=== PATIENT | female | born 1960 | race Caucasian/White ===

== ENCOUNTER → 2017-02-25 | Outpatient (CLI) | payer BC ==
[~2017-02-25] MED LIST: ALEN70TA4 PO; ASPCH81X PO; CHOL1TAB46 PO; COEN400C5 PO; HYDR-5688 PO; HYDR12.55 PO; LPT10 PO; MULT-506 PO
--- NOTE | 2017-02-26 13:28 | MAMMOGRAPHY REPORT ---
BILATERAL DIGITAL SCREENING MAMMOGRAM TOMOSYNTHESIS WITH CAD: 02/25/2017 CLINICAL HISTORY: Routine screening. Patient has no complaints. TECHNIQUE: Breast tomosynthesis in addition to standard 2D mammography was performed. Current study was also evaluated with a Computer Aided Detection (CAD) system. COMPARISON: Comparison is made to exams dated: 02/23/2016 mammogram, 02/21/2015 mammogram, 02/18/2014 m ammogram, 02/10/2013 mammogram, 12/25/2011 mammogram, and 12/21/2010 mammogram - [facility]. BREAST COMPOSITION: The tissue of both breasts is heterogeneously dense, which may obscure small mas ses. FINDINGS: There is a area of architectural distortion in the lateral middle one third of the left br east, only definitely seen on the CC view but thought to project superiorly on the MLO view, for whic h additional spot compression tomosynthesis left MLO views and targeted ultrasound is recommended. A nother possible area of distortion is seen in the superior far posterior right breast on the MLO view . Not definitely seen but possibly projecting medially based on the tomosynthesis localizer bar. Ad ditional spot compression tomosynthesis views and possibly ultrasound is recommended in the right gonzales ast. No other suspicious mass, or suspicious microcalcifications are seen bilaterally. IMPRESSION: ACR BI-RADS CATEGORY 0: INCOMPLETE EVALUATION: NEED ADDITIONAL IMAGING EVALUATION The architectural distortion in the lateral left breast and possible architectural distortion in the superior, posterior right breast need additional imaging evaluation. The patient will be called to schedule an appointment. Approximately 10% of breast cancers are not detected with mammography. A negative mammographic report should not delay biopsy if a clinically suggestive mass is present. Nelly Forte M.D. ay/:02/25/2017 16:51:26 High Worker: Denise BERMUDEZ(Anshul)(Nadir), [facility] letter sent: Addl Imaging 0 BI-RADS Code: ACR BI-RADS Category 0: Incomplete Evaluation: Need Additional Imaging Evaluation
== END | disposition home or self-care (01) ==
LOC: C.MAMM 09:04
PROVIDERS: ATTEND Obstetrics & Gynecology
DX: Z12.31 Encounter for screening mammogram for malignant neoplasm of breast (principal); R92.8 Other abnormal and inconclusive findings on diagnostic imaging of breast

== ENCOUNTER → 2017-03-12 | Outpatient (CLI) | payer BC ==
--- NOTE | 2017-03-12 15:39 | MAMMOGRAPHY REPORT ---
BILATERAL DIGITAL DIAGNOSTIC MAMMOGRAM TOMOSYNTHESIS WITH CAD AND TARGETED BILATERAL ULTRASOUND: 03/12 CLINICAL HISTORY: 56 year-old woman called back from screening mammography for possible architectural distortion in the superior posterior right breast on the MLO view, and left upper outer quadrant. TECHNIQUE: Spot compression CC and MLO tomosynthesis images of each breast were obtained. COMPARISON: Comparison is made to exams dated: 02/25/2017 mammogram, 02/23/2016 mammogram, 02/21/2015 m ammogram, 02/18/2014 mammogram, 02/10/2013 mammogram, and 12/25/2011 mammogram - [facility]. BREAST COMPOSITION: The tissue of both breasts is heterogeneously dense, which may obscure small mas ses. FINDINGS: Spot compression tomosynthesis views of the right breast failed to demonstrate persistent distortion in the medial or lateral posterior breast on the CC views, and in the superior posterior b reast on the MLO view as questioned from the screening mammogram. Further evaluation with ultrasound was performed. No suspicious mass or other focal area of architectural distortion is identified. There is persistent focal architectural distortion in the upper outer middle one third of the left br east, located 5 cm distal to the nipple on the CC projection. No other focal architectural distortio n or obvious mass is identified. Further evaluation with ultrasound was performed. Targeted ultrasound was performed in the upper outer quadrant of the left breast, and throughout the superior right breast including the 4:00 and 8:00 axes. In the 2:00 left breast, 2 cm from the nippl e, there is a very subtle isoechoic taller than wide minimally shadowing mass and associated architec tural distortion, that is thought to correlate with the mammographic finding. It measures approximat delfina 6.2 x 8.1 x 7.1 mm. Differential considerations include radial scar and carcinoma. Definitive c haracterization with an ultrasound-guided core biopsy is recommended. Throughout the visualized right breast, normal fibroglandular tissue is seen without a discrete solid or cystic mass. IMPRESSION: ACR BI-RADS CATEGORY 4B: INTERMEDIATE SUSPICION FOR MALIGNANCY, TARGETED ULTRASOUND ACR BI-RADS CATEGORY 4B: INTERMEDIATE SUSPICION FOR MALIGNANCY 1. Ultrasound guided core biopsy is recommended for a subtle focal area of architectural distortion in the 2:00 axis, for which differential considerations include radial scar and carcinoma. Another o ption of tomosynthesis guided preoperative needle localization and surgical excision was also provide d to the patient but we will opt for the minimally invasive biopsy at this time. 2. No definite persistent distortion in the right breast with supplemental tomosynthesis spot compre ssion views, and no suspicious sonographic correlate identified. This finding most likely represente d normal overlapping tissue. However, pathology results in the left breast will be reviewed prior to definitive follow-up recommendations in the right breast. These results and recommendations were discussed with the patient at the time of the exam. She berry callaway scheduled the left breast biopsy prior to leaving our department. Approximately 10% of breast cancers are not detected with mammography. A negative mammographic report should not delay biopsy if a clinically suggestive mass is present. Nelly Forte M.D. ay/:03/12/2017 14:39:22 Risk Lead: Aruna BANSAL)(Nadir), [facility] letter sent: Abnormal 4/5 BI-RADS Code: ACR BI-RADS Category 4B: Intermediate Suspicion For Malignancy Ultrasound BI-RADS: ACR BI-RADS Category 4B: Intermediate Suspicion For Malignancy
== END | disposition home or self-care (01) ==
LOC: C.MAMM 08:37
PROVIDERS: ATTEND Obstetrics & Gynecology
DX: R92.2 Inconclusive mammogram (principal)

== ENCOUNTER → 2017-03-20 | Outpatient (CLI) | payer BC ==
--- NOTE | 2017-03-20 12:10 | Discharge Instructions ---
Discharge Instructions Procedure Procedure Date: Mar 20, 2017. Reason for visit: Left Mass/Distortion. Discharge Discharge Date: Mar 20, 2017. Discharge Diagnosis: post left breast ultrasound guided core biopsy Medications Restart Stopped Medication(s): May restart Aspirin tomorrow Instructions Activity Recommendations: Additional Limitations (see below) Return to School/Work: no limitations Recommended Home Diet: No Limitations Provider Instructions: ACTIVITY RECOMMENDATIONS: * No lifting, pushing, pulling or exercising the affected side for three days. RETURN TO SCHOOL/WORK: * You may return to work/school after the procedure, but do not perform any strenuous activities for 24 to 48 hours. MEDICATIONS: * Tylenol (two 325 mg) every four to six hours if needed for mild pain (if not allergic to Tylenol). DIET: * Resume previous diet. SPECIAL CARE INSTRUCTIONS: * Keep biopsy site dry for 24 hours. May shower after 24 hours, but do not soak (bathe) incision. * May remove Tegaderm (plastic patch) tomorrow AFTER showering. * Leave the steri-strips on for one week. Allow the steri-strips to fall off by themselves. If not off after one week, you may remove them. You may place a Bandaid crosswise over the strips, if desired. * Apply ice 10 minutes on and 10 minutes off as needed. * Wear a bra at bedtime to sleep more comfortably for 2-3 days. * Your referring physician should have the results after approximately 5 to 7 business days. * Call for unusual bleeding, fever, drainage, etc or if you have any questions call [phone] during normal business hours or after hours call Dr Forte, . FOLLOW UP VISIT: Follow-up with Referring Physician as scheduled. [place] Recommendations: Call your doctor if: * Temperature above 101 degrees * Pain not relieved by pain medicine ordered * There is increased drainage or redness from any incision * You have any unanswered questions or concerns. Your Doctors Instructions noted above were prepared by provider Nelly Forte. Patient Signature Section: Patient Instructions Signature Page Ayah Cabrales Patient (or Guardian) Signature/Date: I have read and understand the instructions given to me by my caregivers. Caregiver/RN/Doctor Signature/Date: The above-named patient and/or guardian has received patient instructions on this date. + Original Patient Signature Page (only) stays with chart. Please make copy for patient.
--- NOTE | 2017-03-20 13:52 | MAMMOGRAPHY REPORT ---
THIS REPORT HAS BEEN AMENDED. ULTRASOUND GUIDED BIOPSY LEFT BREAST: 03/20/2017 CLINICAL HISTORY: Subtle area of architectural distortion in the lateral, middle one third of the lef t breast, best seen on the CC view but thought to project superiorly on the MLO view. A vague probab le sonographic correlate was identified in the 2:00 axis, and the patient presents for ultrasound apolonia ded core needle biopsy. COMPARISON: Comparison is made to exams dated: 03/12/2017 ultrasound, 03/12/2017 mammogram, 02/25/2017 mammogram, 02/23/2016 mammogram, 02/21/2015 mammogram, and 02/18/2014 mammogram - [facility]. PATIENT CONSENT: The procedure, risks and benefits were discussed with the patient and informed writt en consent was obtained. Specific risks to this procedure include: bleeding, infection, puncture of a djacent structure, nontarget biopsy, sampling error, metal allergy, pain and medication reaction. PROCEDURE DESCRIPTION: A time out was performed and the left breast was agreed as the site of biopsy. The skin was prepped and draped in the usual sterile fashion. The very subtle probable area of archi tectural distortion in the 2:00 left breast was identified and chosen as the target for biopsy. Subcu taneous and intraparenchymal 1% buffered lidocaine was administered as local anesthesia. A skin incis ion was made. Through the incision, 5 samples were taken with a 12 gauge Celero biopsy device. A rib bon-shaped metallic marker was placed at the biopsy site. Hemostasis was achieved after manual compre ssion. The patient tolerated the procedure well and there was no immediate complication. The samples were sent to pathology in an appropriately labeled container. Postprocedure left CC and ML 2-D and tomosynthesis images were obtained. There is a new ribbon-shape d metallic biopsy marker in the 2:00 middle one third of the left breast. On the CC tomosynthesis ly sis the marker resides in the center of the architectural distortion, confirming mammographicsonogra phic correlation. No significant postbiopsy hematoma is seen. IMPRESSION: ULTRASOUND GUIDED BIOPSY Status post ultrasound-guided core biopsy of a subtle area of architectural distortion in the 2:00 le ft breast, with biopsy marker placed at the site. The biopsy marker clip is seen in the center of th e distortion on the postprocedure tomosynthesis images confirming mammographicsonographic correlatio n. The patient will receive notification of the biopsy results from her referring physician. Nelly Forte M.D. ay/:03/20/2017 12:32:38 Cleaner Industrial: Denise BERMUDEZ(R)(Nadir), [facility] AMENDMENT: 03/29/2017 Nelly Forte M.D. Pathology results from the ultrasound-guided core biopsy of a subtle area of architectural distortion in the 2:00 left breast yielded a radial scar. Negative for in situ and invasive carcinoma. The pa thology results are concordant with the imaging appearance of architectural distortion. Given the fi nding of a radial scar, surgical consultation for surgical excisional biopsy is recommended. With regard to the right breast findings of a possible second area of distortion in the superior post erior aspect of the breast on the MLO view that effaced with the additional supplemental spot scott yair tomosynthesis images and there was no sonographic correlate, this is probably benign but would r ecommend follow-up right diagnostic mammograms and possible ultrasound to ensure stability in 6 month s.
--- NOTE | 2017-03-20 13:53 | MAMMOGRAPHY REPORT ---
UNILATERAL LEFT DIGITAL DIAGNOSTIC MAMMOGRAM TOMOSYNTHESIS: 03/20/2017 CLINICAL HISTORY: Status post ultrasound-guided core biopsy of a subtle area of architectural distort ion in the 2:00 left breast. Please refer to the report from left breast ultrasound-guided core biopsy performed at the same time for full detail. IMPRESSION: POST PROCEDURE IMAGING FOR MARKER PLACEMENT Please refer to the report from left breast ultrasound-guided core biopsy performed at the same time for full detail. Approximately 10% of breast cancers are not detected with mammography. A negative mammographic report should not delay biopsy if a clinically suggestive mass is present. Nelly Forte M.D. ay/:03/20/2017 12:14:16 Slurry Mixer: Denise BERMUDEZ(Anshul)(M), [facility] BI-RADS Code: Post Procedure Imaging For Marker Placement
== END | disposition home or self-care (01) ==
LOC: C.MAMM 11:02
PROVIDERS: ATTEND Obstetrics & Gynecology
DX: N63 Unspecified lump in breast (principal)

== ENCOUNTER → 2017-04-11 | Outpatient (CLI) | payer BC | END | disposition home or self-care (01) | LOC: C.MAMM 15:02 | PROVIDERS: ATTEND Family Medicine | DX: M85.89 Other specified disorders of bone density and structure, multiple sites (principal); Z87.39 Personal history of other diseases of the musculoskeletal system and connective tissue; E83.50 Unspecified disorder of calcium metabolism ==

== ENCOUNTER → 2017-05-09 | Outpatient (CLI) | payer BC | END | disposition home or self-care (01) | LOC: C.CPL 11:43 | PROVIDERS: ATTEND Surgery | DX: R92.2 Inconclusive mammogram (principal); N64.89 Other specified disorders of breast ==

== ENCOUNTER → 2017-05-17 | Day surgery (SDC) | payer BC ==
[2017-05-13 15:04] VITALS: Ht 162.6 cm; Wt 72.7 kg
[~2017-05-17] VITALS: Ht 162.6 cm; Wt 72.7 kg
[~2017-05-17] MED LIST changes: +ATROPINE SULFATE 0.1 MG/ML 5ML SYR IV PRN; +CEFAZOLIN 2000 MG/60 ML D5W IV SCH; +EpHEDrine SULFATE INJ 50 MG/ML AMP IV PRN; +FENTANYL CITRATE INJ 50 MCG/1 ML 2 ML VIAL IV PRN; +FENTANYL CITRATE INJ 50 MCG/1 ML 2 ML VIAL ONE; +FLUMAZENIL 0.1 MG/1 ML 10 ML VIAL IV PRN; +HYDROCODONE/ACETAMOPHEN 5/325MG TAB PO PRN; +HYDROmorphone INJ 2 MG/ML SYR/VIAL IV PRN; +LABETALOL HCL IV 5 MG/ML 20ML IV PRN; +LACTATED RINGER'S 1000ML 1,000 ML IV SCH; +LIDOCAINE HCL 1% 20 ML VIAL ONE; +LIDOCAINE HCL 2% 2 ML VIAL (20MG/ML) ONE; +MEPERIDINE HCL 25 MG/ML CARP IV PRN; +MIDAZOLAM HCL 1 MG/ML 2ML VIAL ONE; +NALOXONE HCL 0.4 MG/1 ML VIAL/CARP IV PRN; +ONDANSETRON INJ 2 MG/ML 2 ML VIAL IV PRN; +PHENYLEPHRINE 100MCG/ML 5ML SYR IV PRN; +PROPOFOL IV EMULSION 10 MG/ML 20 ML VIAL IV ONE; +SODIUM CHLORIDE 0.9% 1000ML 1,000 ML IV SCH; +SUCCINYLCHOLINE CHLORIDE 20 MG/ML 10 ML VIAL IV ONE
--- NOTE | 2017-05-17 10:34 | History & Physical Bridge - SC ---
H&P Re-Evaluation Bridge Note: I have examined the patient, reviewed the History & Physical and in the interval since the performance of the History & Physical I have noted the following changes of clinical significance: No changes noted
--- NOTE | 2017-05-17 11:50 | [facility] Operative Report ---
Operative Report Operative Date May 17, 2017. Pre-Operative Diagnosis Left Breast Inconclusive Mammogram, Radical Scar Post-Operative Diagnosis Same Procedure(s) Performed Left Breast Biopsy With Needle Localization Surgeon Dr. Mercado Section Supervisor Surgeon(s) Jordan Mckeon PA-C Findings clip Specimens A.) Left Breast Tissue (Out @ 1130)-- To BCC Anesthesia local/ sedation Complication(s) None Disposition Recovery Room / PACU I attest to the content of the Intraoperative Record and any orders documented therein. Any exceptions are noted below.
--- NOTE | 2017-05-17 11:55 | Discharge Instructions-SurgCtr ---
Discharge Instructions Date of Service May 17, 2017. Visit Reason for Visit: Left Breast Inconclusive Mammogram, Radical Scar Discharge Discharge Diagnosis / Problem: abnl Lt mammogram Discharge Goals Goal(s): Decrease discomfort, Improve function, Improve disease control Medications Stopped Medications Name(s): daily asa stopped. last dose 05/09. Activity Recommendations Activity Limitations: as noted below Lifting Limitations: no more than 25 pounds Exercise/Sports Limitations: until after follow-up appointment May Resume Sexual Activity: when tolerated (may shower over incision in 2 days - Sun 05/19) Driving or Machine Use: resume 1 day after discharge SPECIAL CARE INSTRUCTIONS: * Cover incisions and change daily for comfort/drainage. * Leave steri strips in place * May use ibuprofen for pain as tolerated. * Expect some swelling and bruising. Call your doctor if: * Temperature above 101 degrees * Pain not relieved by pain medicine ordered * There is increased drainage or redness from any incision * You have any unanswered questions or concerns [phone]. FOLLOW UP VISIT: If not already scheduled, please call the office for a follow-up visit. for 2 weeks- check up- no sutures to remove OFFICE PHONE NUMBER: Dr. Mercado Office Anesthesia . Post Anesthesia Instructions: If you have had General Anesthesia or IV Sedation: * Do not drive today. * Resume driving when surgeon permits. * Do not make important decisions or sign legal documents today. * Call surgeon for: 1. Temperature elevations greater than 101 degrees F. 2. Uncontrollable pain. 3. Excessive bleeding. 4. Persistent nausea and vomiting. 5. Medication intolerance (nausea, vomiting or rash). * For nausea and vomiting use only clear liquids such as: tea, soda, bouillon until nausea subsides, then gradually increase diet as tolerated. * If you have any concerns or questions, call your surgeon's office. If physician is unavailable and it is an emergency, call 911 or go to the nearest emergency room. . Diet Recommendations Home Diet: resume previous diet Procedures Procedures Performed: Left Breast Biopsy With Needle Localization Pending Studies Studies pending at discharge: no Medical Emergencies . Who to Call and When: Medical Emergencies: If at any time you feel your situation is an emergency, please call 911 immediately. . Non-Emergent Contact Non-Emergency issues call your: Primary Care Provider, Surgeon . . "Provider Documentation" section prepared by Kiran Mercado. .
[2017-05-17 12:04] VITALS: TEMP 37.1
--- NOTE | 2017-05-17 12:23 | OPERATIVE REPORT ---
DATE OF OPERATION: 05/17/2017 PREOPERATIVE DIAGNOSIS: Abnormal mammogram, left breast. POSTOPERATIVE DIAGNOSIS: Same. NAME OF OPERATION: Needle localization left breast biopsy. STAFF SURGEON: Dr. Mercado. CARPENTER WOODEN TANK ERECTING: Licha Mckeon PA-C. ANESTHESIA: 1% plain lidocaine with sedation. PROCEDURE: The patient was brought in the operating room and placed on the operating table in supine position. Her left breast had a needle placed at the breast center and was prepped and draped in usual fashion. Incision was made in the lateral left breast around the needle carrying dissection down excising the tissue from around the needle and sending it to mammography. The clip was within the tissue. Deep tissue was reapproximated using 2-0 plain catgut suture then the skin reapproximated using subcuticular 5-0 Monocryl and Steri-Strips. The patient was transferred to recovery room in stable condition. I attest to the content of the Intraoperative Record and any orders documented therein. Any exception s are noted below.
[2017-05-17 12:41] VITALS: BP 119/74; PULSE 64; O2SAT 97
--- NOTE | 2017-05-17 12:45 | Anesthesia Progress Nt - [facility] ---
Anesthesia Post Op Note Date & Time May 17, 2017 at 12:45 Vital Signs Pain Intensity: 2 Vital Signs Past 12 Hours Date Time Temp Pulse Resp B/P (MAP) Pulse Ox O2 Delivery O2 Flow Rate FiO2 05/17/17 12:41 64 20 119/74 (89) 97 Room Air 05/17/17 12:04 37.1 74 16 131/74 (93) 95 Room Air 05/17/17 08:41 37.4 81 22 133/87 (102) 100 Room Air Notes Mental Status: alert / awake / arousable, participated in evaluation Pt Amnestic to Procedure: Yes Nausea / Vomiting: adequately controlled Pain: adequately controlled Airway Patency, RR, SpO2: stable & adequate BP & HR: stable & adequate Hydration State: stable & adequate Anesthetic Complications: no major complications apparent
--- NOTE | 2017-05-17 13:42 | MAMMOGRAPHY REPORT ---
NEEDLE LOCALIZATION LEFT BREAST: 05/17/2017 CLINICAL HISTORY: Biopsy proven radial scar in the left breast. PROCEDURE DESCRIPTION: With imaging guidance, aseptic technique, and 1% lidocaine as the local anesth etic, the area of concern was localized with a 5 cm Reyes II needle. The path of approach was late ral. The biopsy marker clip is located along the distal portion of the wire, at the level of the pricilla k. The needle was left in place. The patient tolerated the procedure without complication. COMPARISON: Comparison is made to exams dated: 03/20/2017 ultrasound biopsy, 03/20/2017 mammogram, 03/02 ultrasound, 03/12/2017 mammogram, 02/25/2017 mammogram, and 02/23/2016 mammogram - [facility]. IMPRESSION: NEEDLE LOCALIZATION Mammographic guided needle localization of the biopsy marker clip in the left upper outer quadrant. Any Krishna M.D. /:05/17/2017 09:27:01 Alterations Expert: Aruna Carias RT(R)(M), [facility]
--- NOTE | 2017-05-20 08:04 | MAMMOGRAPHY REPORT ---
SPECIMEN LEFT BREAST: 05/17/2017 CLINICAL HISTORY: Status post left breast surgical excision. COMPARISON: Comparison is made to exams dated: 03/20/2017 mammogram, 03/20/2017 ultrasound biopsy, 03/02 ultrasound, 03/12/2017 mammogram, 02/25/2017 mammogram, and 02/23/2016 mammogram - [facility]. Findings: A radiograph was performed of the left breast surgical specimen. The localized biopsy micaela er clip and intact needle localization wire and needle are present within the specimen. Results were discussed with Dr. Mercado over the telephone. IMPRESSION: SPECIMEN The imaged specimen contains the preoperatively-localized biopsy marker clip. Any Krishna M.D. ah/:05/17/2017 12:07:47 Facilities Engineer: Aruna BERMUDEZ(Anshul)(M), [facility]
== END | disposition home or self-care (01) ==
LOC: X.SURG 08:18
PROVIDERS: ATTEND Surgery
DX: R92.2 Inconclusive mammogram (principal); L90.5 Scar conditions and fibrosis of skin; N64.89 Other specified disorders of breast; E78.00 Pure hypercholesterolemia, unspecified; Z79.82 Long term (current) use of aspirin; Z82.62 Family history of osteoporosis